=== PATIENT | male | born 1960 | race African-American/Black ===

== ENCOUNTER 2017-05-05 14:25 | Emergency (ER) | payer OTHER ==
[~2017-05-05] VITALS: Ht 172.7 cm; Wt 92.5 kg
[2017-05-05] MEDS ORDERED: IBUPROFEN 600600 M1 PO (16:55)
[2017-05-05] MEDS ORDERED: TIZANIDINE HCL4 MG PO (16:56)
[2017-05-05 17:19] VITALS: BP 142/80
== END 2017-05-05 17:21 | disposition home or self-care (01) ==
LOC: ER 14:25
DX: S80.12XA Contusion of left lower leg, initial encounter (principal); M25.562 Pain in left knee; F17.210 Nicotine dependence, cigarettes, uncomplicated; F10.99 Alcohol use, unspecified with unspecified alcohol-induced disorder; Z86.718 Personal history of other venous thrombosis and embolism; V89.2XXA Person injured in unspecified motor-vehicle accident, traffic, initial encounter; Y93.89 Activity, other specified; Y92.89 Other specified places as the place of occurrence of the external cause; Y99.8 Other external cause status

== ENCOUNTER 2021-10-02 16:15 | Emergency (ER) | payer OTHER ==
[~2021-10-02] VITALS: Ht 172.7 cm; Wt 88.5 kg
[~2021-10-02 16:15] MED LIST: IBUPROFEN 600600 M1 PO; TIZANIDINE HCL4 MG PO
[2021-10-02 16:42] LABS: URINE BILIRUBIN NEGATIVE (Negative); URINE BLOOD NEGATIVE (Negative); URINE CLARITY CLEAR; URINE COLOR YELLOW; URINE GLUCOSE-RANDOM* NEGATIVE (Negative); URINE KETONES NEGATIVE (Negative); URINE LEUKOCYTES-REFLEX NEGATIVE (Negative); URINE NITRITE-REFLEX NEGATIVE (Negative); URINE PROTEIN (DIPSTICK) NEGATIVE (Negative); URINE SPECIFIC GRAVITY 1.015 (1.005-1.035); URINE UROBILINOGEN 0.2 E.U./dl (0.2-1.0)
[2021-10-02 16:50] LABS: ABSOLUTE NEUTROPHILS 3.8 thou/uL (1.4-8.2); BASOPHILS 0.7 % (0.0-2.0); EOSINOPHILS 3.1 % (0.0-3.0); HEMATOCRIT 44.2 % (42.0-52.0); HEMOGLOBIN 14.6 gm/dL (14.0-18.0); LYMPHOCYTES 35.4 % (24.0-44.0); MCH 32.2 pg (26.0-34.0); MCV 97.7 fL (80.0-100.0); MONOCYTES 5.3 % (1.0-8.0); PLATELET COUNT 240 thou/uL (150-400); POLYS 55.5 % (36.0-66.0); RBC 4.53 mil/uL (4.50-6.00); RDW 14.6 % (10.5-14.5); WBC 6.8 thou/uL (4.0-11.0)
[2021-10-02 17:21] LABS: CALCIUM 9.5 mg/dL (8.5-10.1)
[2021-10-02 17:27] LABS: ALBUMIN 3.9 g/dL (3.4-5.0); TOTAL BILIRUBIN 0.6 mg/dL (0.2-1.0); TOTAL PROTEIN 7.8 g/dL (6.4-8.2)
[2021-10-02] MEDS ORDERED: CARAFATE 1 GM TA1 G1 PO (19:02)
[2021-10-02] MEDS ORDERED: PROTONIX40 M2 PO (19:02)
[2021-10-02 19:16] VITALS: BP 170/92
== END 2021-10-02 20:42 | disposition home or self-care (01) ==
LOC: ER 16:15
PROVIDERS: Emergency Medicine
DX: K29.70 Gastritis, unspecified, without bleeding (principal); K29.80 Duodenitis without bleeding; F17.210 Nicotine dependence, cigarettes, uncomplicated; Z86.718 Personal history of other venous thrombosis and embolism; Z98.890 Other specified postprocedural states; Z79.899 Other long term (current) drug therapy